=== PATIENT | female | born 1965 | race African-American/Black ===

== ENCOUNTER 2017-09-09 10:15 | Observation (INO) | payer MEDICAID, OTHER ==
[2017-09-09] VITALS (10 sets, daily range): BP systolic 100–128; BP diastolic 58–67; PULSE 51–91; RESP 15–18; TEMP 98.2–98.9; O2SAT 97–100
[~2017-09-09] VITALS: Ht 170.2 cm; Wt 98.0 kg
[2017-09-09] MEDS ORDERED: SODIUM CHLORIDE 0.9% FLUSH 10 ML FLUSH IVF PRN (11:30)
[2017-09-09] MEDS ORDERED: ASPIRIN 81 MG CHEW TAB PO ONE (11:30)
[2017-09-09] MEDS ORDERED: SODIUM CHLORID 0.9% 500 ML INJ 500 ML IV ONE (11:30)
[2017-09-09] MEDS ORDERED: MORPHINE SULFATE 2 MG/ML INJ IV PUSH ONE (11:30)
--- NOTE | 2017-09-09 11:47 | PD ---
HPI Chief Complaint: Chest Pain Time Seen by Provider: 11:27 Travel History International Travel<30 days: No Contact w/Intl Traveler<30days: No Traveled to known affect area: No History of Present Illness HPI 52-year-old Afro-N[place]alese female presents to the emergency department with history of 2 issues. Patient states he fell bowling 6 days ago injuring her right foot/ankle, knee, and hip. She has been babying this for the past week. Patient now is complaining of substernal chest pain pressure and shortness of breath which started yesterday and progressively worse over the past 24 hours. She denies previous history of heart disease, but is on simvastatin for cholesterol. Her pain is 8 out of 10. Patient does have a history of asthma,, but she feels this is "different". Patient states no fever or chills. She denies nausea or vomiting. She has no known drug allergies. [facility] Social History Alcohol Use: Yes Tobacco Use: No Substance Use: No Allergies-Medications (Allergen,Severity, Reaction): Coded Allergies: No Known Allergies (Unverified , 09/09/17) Reported Meds & Prescriptions Reported Meds & Active Scripts Active Reported Tramadol (Tramadol HCl) 50 Mg Tab 50 Mg PO Q4H PRN Simvastatin 20 Mg Tab 20 Mg PO BID Review of Systems Except as stated in HPI: all other systems reviewed are Neg General / Constitutional: No: Fever Eyes: No: Visual changes HENT: No: Headaches Cardiovascular: Positive: Chest Pain or Discomfort, Dyspnea on exertion, No: Palpitations, Irregular Rhythm, Tachycardia, Diaphoresis, Syncope, Varicosities , Edema, Varicosities, Phlebitis, Claudication Respiratory: Positive: Shortness of Breath (see history of present illness), No : Cough, Wheezing, Sneezing, Orthopnea, Hemoptysis, Stridor, Night Sweats, Pleuritic Pain Gastrointestinal: No: Nausea, Vomiting, Diarrhea, Abdominal Pain Genitourinary: No: Dysuria Musculoskeletal: Positive: Arthralgias, Limited ROM, Pain (see history of present illness.) Skin: No Rash Neurologic: No: Weakness Psychiatric: No: Depression Endocrine: No: Polydipsia Hematologic/Lymphatic: No: Easy Bruising Physical Exam Narrative GENERAL: Patient appears in [id number] distress. SKIN: Warm and dry. Normal color. Normal turgor. No diaphoresis. HEAD: Atraumatic. Normocephalic. EYES: Pupils equal and round. No scleral icterus. No injection or drainage. ENT: No nasal bleeding or discharge. Mucous membranes pink and moist. TMs are clear bilaterally. Pharynx is clear. Airway is patent. NECK: Trachea midline. Supple nontender. CARDIOVASCULAR: Regular rate and rhythm. No murmurs gallops or rubs appreciated. RESPIRATORY: No accessory muscle use. Clear to auscultation. Breath sounds equal bilaterally. Patient appears to have shortness of breath without accessory muscle use. No wheezes. Signs more suggestive of cardiac issue. GASTROINTESTINAL: Abdomen soft, non-tender, nondistended. Hepatic and splenic margins not palpable. MUSCULOSKELETAL: Extremities without clubbing, cyanosis, or edema. Patient has swelling over the right lateral malleolus and proximal dorsal foot. Range of motion is intact. No obvious deformities. Right Knee does not have significant effusion or laxity appreciated. Patient does complain of pain with movement of both the knee and the right hip. NEUROLOGICAL: Awake and alert. No obvious cranial nerve deficits. Motor grossly within normal limits. Five out of 5 muscle strength in the arms and legs. Normal speech. PSYCHIATRIC: Appropriate mood and affect; insight and judgment normal. Data Data Last Documented VS Vital Signs Date Time Temp Pulse Resp B/P (MAP) Pulse Ox O2 Delivery O2 Flow Rate FiO2 09/09/17 12:19 72 18 107/59 (75) 97 Nasal Cannula 2.00 09/09/17 10:17 98.3 Orders Orders Electrocardiogram (09/09/17 ) Electrocardiogram (09/09/17 11:28) B-Type Natriuretic Peptide (09/09/17 11:28) Ckmb (Isoenzyme) Profile (09/09/17 11:28) Complete Blood Count With Diff (09/09/17 11:28) Comprehensive Metabolic Panel (09/09/17 11:28) D-Dimer (09/09/17 11:28) Magnesium (Mg) (09/09/17 11:28) Prothrombin Time / Inr (Pt) (09/09/17 11:28) Act Partial Throm Time (Ptt) (09/09/17 11:28) Troponin I (09/09/17 11:28) Chest, Single Ap (09/09/17 11:28) Ecg Monitoring (09/09/17 11:28) Bilateral Bp Monitoring (09/09/17 11:28) Iv Access Insert/Monitor (09/09/17 11:28) Oximetry (09/09/17 11:28) Oxygen Administration (09/09/17 11:28) Aspirin Chew (Aspirin Chew) (09/09/17 11:30) Sodium Chloride 0.9% Flush (Ns Flush) (09/09/17 11:30) Nitroglycerin Sl (Nitrostat Sl) (09/09/17 11:30) Sodium Chlorid 0.9% 500 Ml Inj (Ns 500 M (09/09/17 11:30) Morphine Inj (Morphine Inj) (09/09/17 11:30) Ankle, Complete ([id number]) (09/09/17 11:28) Foot, Complete ([id number]) (09/09/17 11:28) Hip, Uni(Ap&Lat) W Ap Pelvis (09/09/17 11:28) CKMB (09/09/17 11:38) CKMB% (09/09/17 11:38) Labs Laboratory Tests Test 09/09/17 11:38 White Blood Count 7.7 TH/MM3 Red Blood Count 4.44 MIL/MM3 Hemoglobin 13.0 GM/DL Hematocrit 39.1 % Mean Corpuscular Volume 88.1 FL Mean Corpuscular Hemoglobin 29.2 PG Mean Corpuscular Hemoglobin Concent 33.2 % Red Cell Distribution Width 14.1 % Platelet Count 409 TH/MM3 Mean Platelet Volume 6.9 FL Neutrophils (%) (Auto) 42.7 % Lymphocytes (%) (Auto) 45.6 % Monocytes (%) (Auto) 9.2 % Eosinophils (%) (Auto) 2.0 % Basophils (%) (Auto) 0.5 % Neutrophils # (Auto) 3.3 TH/MM3 Lymphocytes # (Auto) 3.5 TH/MM3 Monocytes # (Auto) 0.7 TH/MM3 Eosinophils # (Auto) 0.2 TH/MM3 Basophils # (Auto) 0.0 TH/MM3 CBC Comment DIFF FINAL Differential Comment Prothrombin Time 10.0 SEC Prothromb Time International Ratio 1.0 RATIO Activated Partial Thromboplast Time 26.8 SEC D-Dimer Quantitative (PE/DVT) 0.21 MG/L FEU Blood Urea Nitrogen 14 MG/DL Creatinine 0.72 MG/DL Random Glucose 90 MG/DL Total Protein 8.0 GM/DL Albumin 3.6 GM/DL Calcium Level 8.9 MG/DL Magnesium Level 2.0 MG/DL Alkaline Phosphatase 86 U/L Aspartate Amino Transf (AST/SGOT) 20 U/L Alanine Aminotransferase (ALT/SGPT) 24 U/L Total Bilirubin 0.4 MG/DL Sodium Level 143 MEQ/L Potassium Level 4.5 MEQ/L Chloride Level 109 MEQ/L Carbon Dioxide Level 26.9 MEQ/L Anion Gap 7 MEQ/L Estimat Glomerular Filtration Rate 84 ML/MIN Total Creatine Kinase 111 U/L Creatine Kinase MB LESS THAN 0.5 NG/ML Troponin I LESS THAN 0.02 NG/ML B-Type Natriuretic Peptide 4 PG/ML MDM Medical Decision Making Medical Screen Exam Complete: Yes Emergency Medical Condition: Yes Differential Diagnosis Recent fall with injury to the right ankle/foot, right knee, right hip. Chest pain. Cardiac syndrome. Possible STEMI. Narrative Course Patient is in mild to moderate distress. EKG reviewed showing sinus rhythm with flipped T waves in the V1 and V2 V3 and V4 and V5 leads with moderate T wave abnormality consisting of QRS deflection of less than 1 suggestive of anterior ischemia. This is reviewed with Dr. Fernandes Chest pain protocol was initiated. Chest x-ray is ordered as well as labs including CBC, CMP, proBNP, d-dimer, cardiac panel, and lipase. IV access is obtained patient is given 4 mg Zofran IV as well as 4 mg morphine IV, as well as 0.4 mg sublingual nitroglycerin 3 for chest pain. Patient is given 324 mg aspirin by mouth. X-rays of the right hip, knee, ankle, and foot are ordered as well. X-rays of the hip, knee, ankle, and foot are all unremarkable. CBC is unremarkable, except for increased lymphs of 45.6%. Coagulation studies are normal, and d-dimer is negative with 0.21 result. 1220 hrs. Patient reassessed after the above medications and appears much more at ease, breathing easier, with improved chest pain. Chemistry shows no acute process, and first troponin is less than 0.02, CK-MB is less than 0.5. BNP is 4. Patient will be admitted to the chest pain center for further evaluation and treatment. Diagnosis Primary Impression: Chest pain at rest Additional Impression: Moderate right ankle sprain Qualified Codes: S93.401A - Sprain of unspecified ligament of right ankle, initial encounter Admitting Information Admitting Physician Requests: Observation Condition: Stable Fredi Mccollum Sep 09, 2017 11:46
[2017-09-09] MEDS ORDERED: TRAM50TA PO (11:52)
[2017-09-09] MEDS ORDERED: SIMV20TA PO (11:52)
[2017-09-09] MEDS: NITROGLYCERIN 0.4 MG SL 25 TABS/BTL SL SCH ×3 (12:01→12:18)
[2017-09-09 12:11] LABS: AUTOMATED NEUTROPHIL # 3.3 TH/MM3 (1.8-7.7); BASOPHIL % 0.5 % (0.0-2.0); EOSINOPHIL # 0.2 TH/MM3 (0-0.4); HEMATOCRIT 39.1 % (35.0-46.0); LYMPH % 45.6 % (9.0-44.0); LYMPHOCYTE # 3.5 TH/MM3 (1.0-4.8); MEAN CELL VOLUME 88.1 FL (80.0-100.0); MEAN CORPUSCULAR HEMOGLOBIN 29.2 PG (27.0-34.0); MEAN CORPUSCULAR HGB CONC 33.2 % (32.0-36.0); MEAN PLATELET VOLUME 6.9 FL (7.0-11.0); MONO % 9.2 % (0.0-8.0); MONOCYTE # 0.7 TH/MM3 (0-0.9); NEUT % 42.7 % (16.0-70.0); PLATELET COUNT 409 TH/MM3 (150-450); RED BLOOD COUNT 4.44 MIL/MM3 (4.00-5.30); RED CELL DISTRIBUTION WIDTH 14.1 % (11.6-17.2); WHITE BLOOD COUNT 7.7 TH/MM3 (4.0-11.0)
[2017-09-09 12:23] LABS: D-DIMER 0.21 MG/L FEU (0.00-0.50)
--- NOTE | 2017-09-09 12:25 | RADRPT ---
EXAM DATE/TIME: 09/09/2017 11:42 [facility] COMPARISON: No previous studies available for comparison. INDICATIONS : Chest pain, fell MEDICAL HISTORY : None. SURGICAL HISTORY : None. ENCOUNTER: Initial ACUITY: 2 days PAIN SCORE: 10/10 LOCATION: Bilateral chest FINDINGS: Single AP view of the chest. The lungs are clear. Cardiomediastinal silhouette within normal limits. No evidence of pleural effusion or pneumothorax. CONCLUSION: No acute cardiopulmonary disease identified. Rick Lopez MD on September 09, 2017 at 12:22 Board Certified Radiologist. This report was verified electronically.
--- NOTE | 2017-09-09 12:26 | RADRPT ---
EXAM DATE/TIME: 09/09/2017 11:45 [facility] COMPARISON: No previous studies available for comparison. INDICATIONS : Right hip pain, fell MEDICAL HISTORY : None. SURGICAL HISTORY : None. ENCOUNTER: Initial ACUITY: 2 days PAIN SCORE: 2/10 LOCATION: Right Hip FINDINGS: 3 views of right hip and pelvis. Bone alignment within normal limits. No evidence of fracture. No ev idence of joint narrowing. CONCLUSION: No evidence of fracture. Rick Lopez MD on September 09, 2017 at 12:22 Board Certified Radiologist. This report was verified electronically.
--- NOTE | 2017-09-09 12:27 | RADRPT ---
EXAM DATE/TIME: 09/09/2017 11:47 [facility] COMPARISON: No previous studies available for comparison. INDICATIONS : Right ankle pain, fell MEDICAL HISTORY : None. SURGICAL HISTORY : None. ENCOUNTER: Initial ACUITY: 2 days PAIN SCORE: 3/10 LOCATION: Right Ankle FINDINGS: 3 views right ankle. Prominent lateral soft tissue swelling. Bone alignment within normal limits. No evidence of fracture. Ankle mortise intact. CONCLUSION: No evidence of fracture. Rick Lopez MD on September 09, 2017 at 12:23 Board Certified Radiologist. This report was verified electronically.
--- NOTE | 2017-09-09 12:28 | RADRPT ---
EXAM DATE/TIME: 09/09/2017 11:48 [facility] COMPARISON: No previous studies available for comparison. INDICATIONS : Right foot pain, fell MEDICAL HISTORY : None. SURGICAL HISTORY : None. ENCOUNTER: Initial ACUITY: 2 days PAIN SCORE: 2/10 LOCATION: Right Foot FINDINGS: 3 views right foot. Bone alignment within normal limits. No evidence of fracture. Small plantar calc aneal spur. CONCLUSION: No evidence of fracture. Rick Lopez MD on September 09, 2017 at 12:24 Board Certified Radiologist. This report was verified electronically.
[2017-09-09 12:37] LABS: ALBUMIN 3.6 GM/DL (3.4-5.0); ALKALINE PHOSPHATASE 86 U/L (45-117); ALT (GPT) 24 U/L (10-53); AST (GOT) 20 U/L (15-37); BICARBONATE 26.9 MEQ/L (21.0-32.0); BLOOD UREA NITROGEN 14 MG/DL (7-18); CALCIUM 8.9 MG/DL (8.5-10.1); CHLORIDE 109 MEQ/L (98-107); CREATININE 0.72 MG/DL (0.50-1.00); GLOMERULAR FILTRATION RATE 84 ML/MIN (>89); GLUCOSE,RANDOM 90 MG/DL (74-106); SODIUM (NA) 143 MEQ/L (136-145); TOTAL BILIRUBIN ADULT 0.4 MG/DL (0.2-1.0); TROPONIN I LESS THAN 0.02 NG/ML (0.02-0.05)
[2017-09-09] MEDS ORDERED: ACETAMINOPHEN 500 MG CPLT PO PRN (13:45)
[2017-09-09] MEDS ORDERED: ONDANSETRON HCL 4 MG/2 ML VIAL IV PUSH PRN (13:45)
[2017-09-09] MEDS ORDERED: NITROGLYCERIN 0.4 MG SL 25 TABS/BTL SL PRN (13:45)
--- NOTE | 2017-09-09 13:48 | PD ---
Physical Exam Narrative GENERAL: Well-nourished, well-developed patient. SKIN: Warm and dry. HEAD: Normocephalic and atraumatic. EYES: No injection or drainage. ENT: No nasal drainage noted. NECK: Supple, trachea midline. CARDIOVASCULAR: Regular rate and rhythm RESPIRATORY: no increased effort. No accessory muscle use. GASTROINTESTINAL: Abdomen nondistended. NEUROLOGICAL: Awake and alert. Motor and sensory grossly within normal limits. Normal speech. Data Data Last Documented VS Vital Signs Date Time Temp Pulse Resp B/P (MAP) Pulse Ox O2 Delivery O2 Flow Rate FiO2 09/09/17 12:41 68 18 118/61 (80) 99 Nasal Cannula 2.00 09/09/17 10:17 98.3 Orders Orders Electrocardiogram (09/09/17 ) Electrocardiogram (09/09/17 11:28) B-Type Natriuretic Peptide (09/09/17 11:28) Ckmb (Isoenzyme) Profile (09/09/17 11:28) Complete Blood Count With Diff (09/09/17 11:28) Comprehensive Metabolic Panel (09/09/17 11:28) D-Dimer (09/09/17 11:28) Magnesium (Mg) (09/09/17 11:28) Prothrombin Time / Inr (Pt) (09/09/17 11:28) Act Partial Throm Time (Ptt) (09/09/17 11:28) Troponin I (09/09/17 11:28) Chest, Single Ap (09/09/17 11:28) Ecg Monitoring (09/09/17 11:28) Bilateral Bp Monitoring (09/09/17 11:28) Iv Access Insert/Monitor (09/09/17 11:28) Oximetry (09/09/17 11:28) Oxygen Administration (09/09/17 11:28) Aspirin Chew (Aspirin Chew) (09/09/17 11:30) Sodium Chloride 0.9% Flush (Ns Flush) (09/09/17 11:30) Nitroglycerin Sl (Nitrostat Sl) (09/09/17 11:30) Sodium Chlorid 0.9% 500 Ml Inj (Ns 500 M (09/09/17 11:30) Morphine Inj (Morphine Inj) (09/09/17 11:30) Ankle, Complete ([id number]) (09/09/17 11:28) Foot, Complete ([id number]) (09/09/17 11:28) Hip, Uni(Ap&Lat) W Ap Pelvis (09/09/17 11:28) CKMB (09/09/17 11:38) CKMB% (09/09/17 11:38) Admit Order (Ed Use Only) (09/09/17 13:00) Labs Laboratory Tests Test 09/09/17 11:38 White Blood Count 7.7 TH/MM3 Red Blood Count 4.44 MIL/MM3 Hemoglobin 13.0 GM/DL Hematocrit 39.1 % Mean Corpuscular Volume 88.1 FL Mean Corpuscular Hemoglobin 29.2 PG Mean Corpuscular Hemoglobin Concent 33.2 % Red Cell Distribution Width 14.1 % Platelet Count 409 TH/MM3 Mean Platelet Volume 6.9 FL Neutrophils (%) (Auto) 42.7 % Lymphocytes (%) (Auto) 45.6 % Monocytes (%) (Auto) 9.2 % Eosinophils (%) (Auto) 2.0 % Basophils (%) (Auto) 0.5 % Neutrophils # (Auto) 3.3 TH/MM3 Lymphocytes # (Auto) 3.5 TH/MM3 Monocytes # (Auto) 0.7 TH/MM3 Eosinophils # (Auto) 0.2 TH/MM3 Basophils # (Auto) 0.0 TH/MM3 CBC Comment DIFF FINAL Differential Comment Prothrombin Time 10.0 SEC Prothromb Time International Ratio 1.0 RATIO Activated Partial Thromboplast Time 26.8 SEC D-Dimer Quantitative (PE/DVT) 0.21 MG/L FEU Blood Urea Nitrogen 14 MG/DL Creatinine 0.72 MG/DL Random Glucose 90 MG/DL Total Protein 8.0 GM/DL Albumin 3.6 GM/DL Calcium Level 8.9 MG/DL Magnesium Level 2.0 MG/DL Alkaline Phosphatase 86 U/L Aspartate Amino Transf (AST/SGOT) 20 U/L Alanine Aminotransferase (ALT/SGPT) 24 U/L Total Bilirubin 0.4 MG/DL Sodium Level 143 MEQ/L Potassium Level 4.5 MEQ/L Chloride Level 109 MEQ/L Carbon Dioxide Level 26.9 MEQ/L Anion Gap 7 MEQ/L Estimat Glomerular Filtration Rate 84 ML/MIN Total Creatine Kinase 111 U/L Creatine Kinase MB LESS THAN 0.5 NG/ML Troponin I LESS THAN 0.02 NG/ML B-Type Natriuretic Peptide 4 PG/ML MDM Supervised Visit with RANULFO: Yes Interpretation(s) CBC & BMP Diagram 09/09/17 11:38 Total Protein 8.0, Albumin 3.6, Calcium Level 8.9, Magnesium Level 2.0, Alkaline Phosphatase 86, Aspartate Amino Transf (AST/SGOT) 20, Alanine Aminotransferase (ALT/SGPT) 24, Total Bilirubin 0.4 Last 24 hours Impressions Hip and Pelvis X-Ray 09/09/171127 Signed Impressions: Service Date/Time: Saturday, September 09, 2017 11:45 - CONCLUSION: No evidence of fracture. Rick Lopez MD Foot X-Ray 09/09/171127 Signed Impressions: Service Date/Time: Saturday, September 09, 2017 11:48 - CONCLUSION: No evidence of fracture. Rick Lopez MD Chest X-Ray 09/09/171127 Signed Impressions: Service Date/Time: Saturday, September 09, 2017 11:42 - CONCLUSION: No acute cardiopulmonary disease identified. Rick Lopez MD Ankle X-Ray 09/09/171127 Signed Impressions: Service Date/Time: Saturday, September 09, 2017 11:47 - CONCLUSION: No evidence of fracture. Rick Lopez MD Narrative Course I, Dr. dia, have reviewed the advance practice practitioner's documentation and am in agreement, met with the patient face to face, made the diagnosis, and the medical decision making was done by me. *My assessment and Findings: 52-year-old female presents with chest pain and having pain to her leg after a fall. Patient to her chest is not over where she hit it. She hasn't had a stress test for 5 years. She is feeling better after nitroglycerin and has T-wave inversions anteriorly. Patient agrees to admission Diagnosis Primary Impression: Chest pain at rest Additional Impression: Moderate right ankle sprain Qualified Codes: S93.401A - Sprain of unspecified ligament of right ankle, initial encounter Admitting Information Admitting Physician Requests: Observation Condition: Stable Ju Dia MD Sep 09, 2017 13:48
--- NOTE | 2017-09-09 14:31 | HHI.HP ---
HPI Primary Care Physician Edward Chinchilla DO Chief Complaint Chest pain History of Present Illness 52 year of female with history of asthma and hyperlipidemia presents to emergency room for further evaluation of chest pain. Reports falling onto right side last Sunday while bowling. Since falling right arm/shoulder/hip/leg/ foot hurting however reports "babying area and relaxing." Onset of chest pain Sunday. Location substernal. Characterized as "a ton of bricks." No radiation of pain. No associated symptoms with nausea, vomiting, dyspnea, or diaphoresis. Pain constant. Precipitating factors falling. No known relieving factors. Previously prescribed Tramadol PRN, took x1 dose without relief. Came to ER for further evaluation due to prolonged chest discomfort. No particular movement or position makes pain better or worse, however grimacing noted when positioning herself on stretcher. Area is tender with palpation. Review of Systems General: Recent fall as stated above, otherwise has been in her general state of health. No fatigue,weakness, fever, chills, recent illness, or change in appetite. HEENT: No BRINK, no vision changes, no nasal congestion or drainage, no dysphasia CV: Continuous chest pain as stated above. RESP: No SOB, cough, wheeze,, or recent URI. History of intermediate asthma. GI: No nausea, vomiting, bowel changes, diarrhea, constipation, pain, distention , melena, or blood in the stool. \\ : No dysuria, urgency, frequency EXT: No lower leg edema, no paraesthesias MS: Recent fall while bowling last Sunday. No LOC, did not hit head. Slipped, landed onto right side. Right side of body discomfort since falling developing chest wall pain Sunday. NEURO: No difficulty with balance, LOC, motor/sensory deficits PSYCH: No anxiety, depression SKIN: No rashes, no concerning lesions Past Family Social History Allergies: Coded Allergies: No Known Allergies (Unverified , 09/09/17) Past Medical History Hyperlipidemia, asthma Past Surgical History Reported Medications Reported Meds & Active Scripts Active Reported Tramadol (Tramadol HCl) 50 Mg Tab 50 Mg PO Q4H PRN Simvastatin 20 Mg Tab 20 Mg PO BID Active Ordered Medications Current Medications Medications (Trade) Dose Ordered Sig/Staci Route Start Time Stop Time Status Last Admin (NS Flush) 2 ml UNSCH PRN IVF 09/09/17 11:30 (NS Flush) 2 ml BID IV FLUSH 09/09/17 21:00 (Tylenol) 500 mg Q4H PRN PO 09/09/17 13:45 (Zofran Inj) 4 mg Q6H PRN IV PUSH 09/09/17 13:45 (Nitrostat Sl) 0.4 mg Q5M PRN SL 09/09/17 13:45 (Aspirin) 325 mg DAILY PO 09/10/17 09:00 Family History Brother coronary artery stent in mid 40s. Social History Known hyperlipidemia. No known coronary artery disease, diabetes, or hypertension. Former smoker quitting 4 years ago. Prior to quitting reports smoking 2-3 cigarettes daily. Active. Grown children and active with multiple young grandchildren. Works for [employer]. Past cardiac testing 2012 Exercise stress testing [place], [place] reported no intervention. Given Nitro SL and told to take a baby aspirin daily. Physical Exam Vital Signs Vital Signs Date Time Temp Pulse Resp B/P (MAP) Pulse Ox O2 Delivery O2 Flow Rate FiO2 09/09/17 12:41 68 18 118/61 (80) 99 Nasal Cannula 2.00 09/09/17 12:19 72 18 107/59 (75) 97 Nasal Cannula 2.00 09/09/17 12:14 69 18 109/67 (81) 98 Nasal Cannula 2.00 09/09/17 12:13 68 18 110/61 (77) 97 Nasal Cannula 2.00 09/09/17 12:13 68 18 98 Nasal Cannula 2.00 09/09/17 11:32 97 Nasal Cannula 2.00 09/09/17 11:32 18 97 Nasal Cannula 2.00 09/09/17 10:17 98.3 91 15 128/66 (86) 98 Physical Exam GENERAL: Alert WN, WD, NAD, pleasant, obese, female HEAD: NC, AT EYES: Sclera clear, conjunctiva without injection, pupils equal and round ENT: Mucous membranes pink and moist CV: RRR, without murmur, rub, gallop, no JVD, S1-S2 no S3-S4. Substernal chest pain easily reproduced with palpation. RESP: Clear lungs throughout bilateral, no crackles, wheeze, rhonchi, symmetrical chest rise, nonlabored, able to speak in full sentences ABD: Soft, NT, ND, no masses, positive bowel tones, obese, round EXT: Pulses +24, trace bilateral lower leg dependent edema MS: Normal tone 4 extremities, nontender, no obvious deformities, full range of motion NEURO: CN II through CN XII grossly intact, motor strength 5/5 PSYCH: A+O 3, pleasant affect, appropriate speech, mood, insight and judgment SKIN: Normal turgor, normal texture, no lesions, no rashes, even hair distribution Laboratory Laboratory Tests Test 09/09/17 11:38 White Blood Count 7.7 Red Blood Count 4.44 Hemoglobin 13.0 Hematocrit 39.1 Mean Corpuscular Volume 88.1 Mean Corpuscular Hemoglobin 29.2 Mean Corpuscular Hemoglobin Concent 33.2 Red Cell Distribution Width 14.1 Platelet Count 409 Mean Platelet Volume 6.9 Neutrophils (%) (Auto) 42.7 Lymphocytes (%) (Auto) 45.6 Monocytes (%) (Auto) 9.2 Eosinophils (%) (Auto) 2.0 Basophils (%) (Auto) 0.5 Neutrophils # (Auto) 3.3 Lymphocytes # (Auto) 3.5 Monocytes # (Auto) 0.7 Eosinophils # (Auto) 0.2 Basophils # (Auto) 0.0 CBC Comment DIFF FINAL Differential Comment Prothrombin Time 10.0 Prothromb Time International Ratio 1.0 Activated Partial Thromboplast Time 26.8 D-Dimer Quantitative (PE/DVT) 0.21 Blood Urea Nitrogen 14 Creatinine 0.72 Random Glucose 90 Total Protein 8.0 Albumin 3.6 Calcium Level 8.9 Magnesium Level 2.0 Alkaline Phosphatase 86 Aspartate Amino Transf (AST/SGOT) 20 Alanine Aminotransferase (ALT/SGPT) 24 Total Bilirubin 0.4 Sodium Level 143 Potassium Level 4.5 Chloride Level 109 Carbon Dioxide Level 26.9 Anion Gap 7 Estimat Glomerular Filtration Rate 84 Total Creatine Kinase 111 Creatine Kinase MB LESS THAN 0.5 Troponin I LESS THAN 0.02 B-Type Natriuretic Peptide 4 Result Diagram: 09/09/17 1138 09/09/17 1138 Imaging Last 48 hours Impressions Hip and Pelvis X-Ray 09/09/17 1128 Signed Impressions: Service Date/Time: Saturday, September 09, 2017 11:45 - CONCLUSION: No evidence of fracture. Rick Lopez MD Foot X-Ray 09/09/17 1128 Signed Impressions: Service Date/Time: Saturday, September 09, 2017 11:48 - CONCLUSION: No evidence of fracture. Rick Lopez MD Chest X-Ray 09/09/17 1128 Signed Impressions: Service Date/Time: Saturday, September 09, 2017 11:42 - CONCLUSION: No acute cardiopulmonary disease identified. Rick Lopez MD Ankle X-Ray 09/09/17 1128 Signed Impressions: Service Date/Time: Saturday, September 09, 2017 11:47 - CONCLUSION: No evidence of fracture. Rick Lopez MD Course EKG NSR, normal axis, no st segment changes. T wave inversion leads V2-V5, nonspecific T wave changes V6 (no previous EKG to compare) Caprini VTE Risk Assessment Caprini VTE Risk Assessment: No/Low Risk (score <= 1) Caprini Risk Assessment Model Point Value = 1 Point Value = 2 Point Value = 3 Point Value = 5 Age 41-60 Minor surgery BMI > 25 kg/m2 Swollen legs Varicose veins or History of unexplained or recurrent spontaneous Oral contraceptives or hormone replacement Sepsis (< 1 month) Serious lung disease, including pneumonia (< 1 month) Abnormal pulmonary function Acute myocardial infarction Congestive heart failure (< 1 month) History of inflammatory bowel disease Medical patient at bed rest Age 61-74 Arthroscopic surgery Major open surgery (> 45 min) Laparoscopic surgery (> 45 min) Malignancy Confined to bed (> 72 hours) Immobilizing plaster cast Central venous access Age >= 75 History of VTE Family history of VTE Factor V Leiden Prothrombin [id number] Lupus anticoagulant Anticardiolipin antibodies Elevated serum homocysteine Heparin-induced thrombocytopenia Other congenital or acquired thrombophilia Stroke (< 1 month) Elective arthroplasty Hip, pelvis, or leg fracture Acute spinal cord injury (< 1 month) Prophylaxis Regimen Total Risk Factor Score Risk Level Prophylaxis Regimen 0-1 Low Early ambulation 2 Moderate Order ONE of the following: *Sequential Compression Device (SCD) *Heparin 5000 units SQ BID 3-4 Higher Order ONE of the following medications: *Heparin 5000 units SQ TID *Enoxaparin/Lovenox 40 mg SQ daily (WT < 150 kg, CrCl > 30 mL/min) *Enoxaparin/Lovenox 30 mg SQ daily (WT < 150 kg, CrCl > 10-29 mL/min) *Enoxaparin/Lovenox 30 mg SQ BID (WT < 150 kg, CrCl > 30 mL/min) AND/OR *Sequential Compression Device (SCD) 5 or more Highest Order ONE of the following medications: *Heparin 5000 units SQ TID (Preferred with Epidurals) *Enoxaparin/Lovenox 40 mg SQ daily (WT < 150 kg, CrCl > 30 mL/min) *Enoxaparin/Lovenox 30 mg SQ daily (WT < 150 kg, CrCl > 10-29 mL/min) *Enoxaparin/Lovenox 30 mg SQ BID (WT < 150 kg, CrCl > 30 mL/min) AND *Sequential Compression Device (SCD) Assessment and Plan Assessment and Plan #1 Chest wall pain-admitted to chest pain center. Begin cardiac protocol including 3 sets of EKGs and cardiac enzymes. Will be seen and evaluated by Dr. Mehdi Gilbert. Discussed chest discomfort musculoskeletal in nature, however due to risk factors possible stress testing may be indicated. This will be determined after evaluation by [facility] shoe puller. Patient agreeable to plan of care. Chani Martinez Sep 09, 2017 14:31
[2017-09-09] MEDS ORDERED: KETOROLAC TROMETHAMINE 30 MG/ML (IVP) VIAL IV PUSH ONE ×2 (14:45→22:00)
[2017-09-09 15:09] LABS: TROPONIN I LESS THAN 0.02 NG/ML (0.02-0.05)
--- NOTE | 2017-09-09 16:42 | PD.CARD.PN ---
Subjective Subjective Remarks Pleasant 52 YO black lady who fell while bowling last Sunday night and has had significant pain since. This has involved her right side and been quite uncomfortable but day before yesterday her chest began to hurt more. This is a constant pressure like pain exasperated to sharp pain when taking a deep breath or coughing. The patient was seen and examined and reviewed with ORNAMENTAL BRICK INSTALLER. Agree with her evaluation and recommendations. Objective Medications Current Medications Medications (Trade) Dose Ordered Sig/Staci Route Start Time Stop Time Status Last Admin (NS Flush) 2 ml UNSCH PRN IVF 09/09/17 11:30 (NS Flush) 2 ml BID IV FLUSH 09/09/17 21:00 (Tylenol) 500 mg Q4H PRN PO 09/09/17 13:45 (Zofran Inj) 4 mg Q6H PRN IV PUSH 09/09/17 13:45 (Nitrostat Sl) 0.4 mg Q5M PRN SL 09/09/17 13:45 (Aspirin) 325 mg DAILY PO 09/10/17 09:00 Vital Signs / I&O Vital Signs Date Time Temp Pulse Resp B/P (MAP) Pulse Ox O2 Delivery O2 Flow Rate FiO2 09/09/17 15:30 09/09/17 12:41 68 18 118/61 (80) 99 Nasal Cannula 2.00 09/09/17 12:19 72 18 107/59 (75) 97 Nasal Cannula 2.00 09/09/17 12:14 69 18 109/67 (81) 98 Nasal Cannula 2.00 09/09/17 12:13 68 18 110/61 (77) 97 Nasal Cannula 2.00 09/09/17 12:13 68 18 98 Nasal Cannula 2.00 09/09/17 11:32 97 Nasal Cannula 2.00 09/09/17 11:32 18 97 Nasal Cannula 2.00 09/09/17 10:17 98.3 91 15 128/66 (86) 98 Physical Exam Exquisite pain on pressure along the lower costochondral junctions replication the pain she is complaining of. Chest to anterior exam is clear without RWR CV RSR with no GRM EKG inverted T waves across anterior leads Laboratory Laboratory Tests Test 09/09/17 11:38 09/09/17 14:40 White Blood Count 7.7 TH/MM3 Red Blood Count 4.44 MIL/MM3 Hemoglobin 13.0 GM/DL Hematocrit 39.1 % Mean Corpuscular Volume 88.1 FL Mean Corpuscular Hemoglobin 29.2 PG Mean Corpuscular Hemoglobin Concent 33.2 % Red Cell Distribution Width 14.1 % Platelet Count 409 TH/MM3 Mean Platelet Volume 6.9 FL Neutrophils (%) (Auto) 42.7 % Lymphocytes (%) (Auto) 45.6 % Monocytes (%) (Auto) 9.2 % Eosinophils (%) (Auto) 2.0 % Basophils (%) (Auto) 0.5 % Neutrophils # (Auto) 3.3 TH/MM3 Lymphocytes # (Auto) 3.5 TH/MM3 Monocytes # (Auto) 0.7 TH/MM3 Eosinophils # (Auto) 0.2 TH/MM3 Basophils # (Auto) 0.0 TH/MM3 CBC Comment DIFF FINAL Differential Comment Prothrombin Time 10.0 SEC Prothromb Time International Ratio 1.0 RATIO Activated Partial Thromboplast Time 26.8 SEC D-Dimer Quantitative (PE/DVT) 0.21 MG/L FEU Blood Urea Nitrogen 14 MG/DL Creatinine 0.72 MG/DL Random Glucose 90 MG/DL Total Protein 8.0 GM/DL Albumin 3.6 GM/DL Calcium Level 8.9 MG/DL Magnesium Level 2.0 MG/DL Alkaline Phosphatase 86 U/L Aspartate Amino Transf (AST/SGOT) 20 U/L Alanine Aminotransferase (ALT/SGPT) 24 U/L Total Bilirubin 0.4 MG/DL Sodium Level 143 MEQ/L Potassium Level 4.5 MEQ/L Chloride Level 109 MEQ/L Carbon Dioxide Level 26.9 MEQ/L Anion Gap 7 MEQ/L Estimat Glomerular Filtration Rate 84 ML/MIN Total Creatine Kinase 111 U/L 69 U/L Creatine Kinase MB LESS THAN 0.5 NG/ML Troponin I LESS THAN 0.02 NG/ML LESS THAN 0.02 NG/ML B-Type Natriuretic Peptide 4 PG/ML Imaging Last 24 hours Impressions Hip and Pelvis X-Ray 09/09/17 1128 Signed Impressions: Service Date/Time: Saturday, September 09, 2017 11:45 - CONCLUSION: No evidence of fracture. Rick Lopez MD Foot X-Ray 09/09/17 1128 Signed Impressions: Service Date/Time: Saturday, September 09, 2017 11:48 - CONCLUSION: No evidence of fracture. Rick Lopez MD Chest X-Ray 09/09/17 1128 Signed Impressions: Service Date/Time: Saturday, September 09, 2017 11:42 - CONCLUSION: No acute cardiopulmonary disease identified. Rick Lopez MD Ankle X-Ray 09/09/17 1128 Signed Impressions: Service Date/Time: Saturday, September 09, 2017 11:47 - CONCLUSION: No evidence of fracture. Rick Lopez MD Assessment and Plan Assessment and Plan Her CP is clearly muscular skeletal however she does have some risk and the EKG is somewhat abnormal with no prior to compare. Will treat her MS pain RO ACS and MATILDA (she is not a candidate to walk with the ankle hip and chest wall pain) Code Status Full Discussed Condition With ORNAMENTAL BRICK INSTALLER and patient Mehdi Gilbert MD Sep 09, 2017 16:42
[2017-09-09 19:29] LABS: TROPONIN I LESS THAN 0.02 NG/ML (0.02-0.05)
[2017-09-09] MEDS: SODIUM CHLORIDE 0.9% FLUSH 10 ML FLUSH IV FLUSH SCH (21:02)
[2017-09-10 00:11] VITALS: PULSE 54
[2017-09-10 03:40] VITALS: BP 92/50; PULSE 54; RESP 18; TEMP 98.5; O2SAT 100
[2017-09-10 07:25] VITALS: PULSE 60
[2017-09-10] MEDS: SODIUM CHLORIDE 0.9% FLUSH 10 ML FLUSH IV FLUSH SCH (09:00)
[2017-09-10] MEDS ORDERED: ASPIRIN 325 MG TAB PO SCH (09:00)
[2017-09-10] MEDS ORDERED: REGADENOSON INJ 0.4 MG/5 ML SYR ONE (09:25)
--- NOTE | 2017-09-10 10:54 | RADRPT ---
EXAM DATE/TIME: 09/10/2017 09:15 [facility] COMPARISON: No previous studies available for comparison. INDICATIONS : Substernal chest pain. Angina. DOSE: 26.9 mCi Tc99m Myoview at stress. 8.5 mCi Tc99m Myoview at rest. 0.4 mg Lexiscan STRESS SYMPTOMS: Dyspnea. EJECTION FRACTION: 67% MEDICAL HISTORY : Hypertension. Asthma. SURGICAL HISTORY : section. ENCOUNTER: Initial ACUITY: 1 day PAIN SCALE: 5/10 LOCATION: Substernal chest TECHNIQUE: The patient underwent pharmacologic stress with infusion of prescribed dose. Continuous ECG tracing was monitored during stress. Gated SPECT imaging was performed after stress and conventional SPECT i maging was performed at rest. The examination was performed on a SPECT/CT scanner, both attenuation and non-corrected datasets were reviewed. FINDINGS: DISTRIBUTION: The maximum perfused segment at stress is in the anterior lateral wall. PERFUSION STUDY: The pattern of perfusion at stress is within normal limits. GATED STUDY: There is intact wall motion and thickening without hypokinetic or dyskinetic segments. CONCLUSION: 1. No fixed or reversible defects to suggest ischemia or infarction. 2. Normal wall motion and calculated ejection fraction. RISK CATEGORY: Low (<1% Annual Mortality Rate) Chris Phillip MD on September 10, 2017 at 10:48 Board Certified Radiologist. This report was verified electronically.
--- NOTE | 2017-09-10 11:03 | HHI.DCPOC ---
Discharge Care Plan Diagnosis: (1) Costochondral chest pain Goals to Promote Your Health * To prevent worsening of your condition and complications * To maintain your health at the optimal level Directions to Meet Your Goals Take your medications as prescribed Follow your dietary instruction Follow activity as directed Keep your appointments as scheduled Take your immunizations and boosters as scheduled If your symptoms worsen call your PCP, if no PCP go to Urgent Care Center or Emergency Room Smoking is Dangerous to Your Health. Avoid second hand smoke Call the 24-hour hour crisis hotline for domestic abuse at Chani Martinez Sep 10, 2017 11:03
--- NOTE | 2017-09-10 11:22 | HHI.DS ---
Discharge Summary Admission Date Sep 09, 2017 at 13:02 Discharge Date: Sep 10, 2017 Admitting Diagnosis Chest Pain/Right Ankle Sprain (1) Costochondral chest pain Diagnosis: Principal ICD Codes: R07.1 - Chest pain on breathing Status: Acute Procedures Last 48 hours Impressions Myocardial Perfusion Scan Nuc Med 09/10/17 0000 Signed Impressions: Service Date/Time: Sunday, September 10, 2017 09:15 - CONCLUSION: 1. No fixed or reversible defects to suggest ischemia or infarction. 2. Normal wall motion and calculated ejection fraction. RISK CATEGORY: Low (<1%% Annual Mortality Rate) Chris Phillip MD Hip and Pelvis X-Ray 09/09/171127 Signed Impressions: Service Date/Time: Saturday, September 09, 2017 11:45 - CONCLUSION: No evidence of fracture. Rick Lopez MD Foot X-Ray 09/09/171127 Signed Impressions: Service Date/Time: Saturday, September 09, 2017 11:48 - CONCLUSION: No evidence of fracture. Rick Lopez MD Chest X-Ray 09/09/171127 Signed Impressions: Service Date/Time: Saturday, September 09, 2017 11:42 - CONCLUSION: No acute cardiopulmonary disease identified. Rick Lopez MD Ankle X-Ray 09/09/178 Signed Impressions: Service Date/Time: Saturday, September 09, 2017 11:47 - CONCLUSION: No evidence of fracture. Rick Lopez MD Brief History 52-year-old female with history of hyperlipidemia presents to emergency room for further evaluation chest pain. Status post fall 1 week ago while bowling. Fell onto Right side. Developing substernal, reproducible chest pain 2 days after falling. Duration constant, made worse with movement. Admitted to chest pain center. Ruled out with cardiac protocol and evaluated by motor tester. Proceed with chemical stress testing due to risk factors and abnormal EKG. Chemical stress testing did not suggest ischemia. Discharge home. CBC/BMP: 09/09/17 1138 09/09/17 1138 Significant Findings Laboratory Tests Test 09/09/17 11:38 09/09/17 14:40 09/09/17 18:23 Mean Platelet Volume 6.9 FL (7.0-11.0) Lymphocytes (%) (Auto) 45.6 % (9.0-44.0) Monocytes (%) (Auto) 9.2 % (0.0-8.0) Chloride Level 109 MEQ/L (98-107) Estimat Glomerular Filtration Rate 84 ML/MIN (>89) Creatine Kinase MB LESS THAN 0.5 NG/ML Troponin I LESS THAN 0.02 NG/ML LESS THAN 0.02 NG/ML LESS THAN 0.02 NG/ML PE at Discharge GENERAL: Alert WN, WD, NAD, pleasant female HEAD: NC, AT CV: RRR, without murmur, rub, gallop, no JVD, S1-S2 no S3-S4. Chest wall pain reproduced with palpation. RESP: Clear lungs throughout bilateral, no crackles, wheeze, rhonchi, symmetrical chest rise, nonlabored, able to speak in full sentences EXT: Pulses +24, no dependent edema MS: Normal tone 4 extremities, no obvious deformities, full range of motion NEURO: CN II through CN XII grossly intact, motor strength 5/5 PSYCH: A+O 3, pleasant affect, appropriate speech, mood, insight and judgment SKIN: Normal turgor, normal texture Pt Condition on Discharge: Good Discharge Disposition: Discharge Home Discharge Instructions DIET: Follow Instructions for: Heart Healthy Diet Activities you can perform: Regular-No Restrictions Additional Information Encouraged use of heating pad to affected chest wall. Reports previously prescribed ibuprofen 800 mg tablets, by her PCP for injury to back, reports taking for short time therefore has tablets available for use. Encouraged taking previously prescribed ibuprofen, 1 tablet, x3 times a day, with food for 3 days. Instructed to follow up with PCP if symptoms do not improve. Verbalized understanding. Chani Martinez Sep 10, 2017 11:22
--- NOTE | 2017-09-10 12:54 | EKG ---
Date Performed: 09/09/2017 Time Performed: 18:38:22 PTAGE: 52 years EKG: Sinus rhythm LOW QRS VOLTAGE IN PRECORDIAL LEADS POSSIBLE ANTERIOR MYOCARDIAL INFARCTION MODERATE T-WAVE ABNORMAL ITY, CONSIDER LATERAL ISCHEMIA ABNORMAL ECG PREVIOUS TRACING : 09/09/2017 14.37 Since previous tracing, no significant change noted DOCTOR: Romel Mata Interpretating Date/Time 09/10/2017 12:52:43
--- NOTE | 2017-09-10 12:55 | EKG ---
Date Performed: 09/09/2017 Time Performed: 14:37:41 PTAGE: 52 years EKG: Sinus rhythm LOW QRS VOLTAGE IN PRECORDIAL LEADS MODERATE T-WAVE ABNORMALITY, CONSIDER ANTERIOR ISCHEMIA ABNORMAL ECG INTERPRETATION BASED ON A DEFAULT AGE OF 40 YEARS NO PREVIOUS TRACING DOCTOR: Romel Mata Interpretating Date/Time 09/10/2017 12:53:02
--- NOTE | 2017-09-10 12:55 | EKG ---
Date Performed: 09/09/2017 Time Performed: 10:35:11 PTAGE: 52 years EKG: Sinus rhythm LOW QRS VOLTAGE IN PRECORDIAL LEADS MODERATE T-WAVE ABNORMALITY, CONSIDER ANTERIOR ISCHEMIA ABNORMAL ECG PREVIOUS TRACING : 09/09/2017 10.33 Since previous tracing, no significant change noted DOCTOR: Romel Mata Interpretating Date/Time 09/10/2017 12:53:14
--- NOTE | 2017-09-10 13:00 | TR ---
Date Performed: 09/10/2017 Time Performed: 09:33:46 DOCTOR: Romel Mata DRUG LIST: CLINICAL HISTORY: REASON FOR TEST: CHEST PAIN REASON FOR ENDING: OBSERVATION: CONCLUSION: Lexiscan stress test was performed under standard four minute protocol. Radionuclid e was injected one minute prior to ending the test. T wave changes were unchanged throughout teat. Nu clear imaging and interpretation are pending. COMMENTS:
== END 2017-09-10 18:19 | disposition home or self-care (01) ==
LOC: NEPC 10:15 → NEDA 13:02 → NEPGCP 15:30
PROVIDERS: ADMIT Internal Medicine Interventional Cardiology; ATTEND Internal Medicine Interventional Cardiology
DX: R07.1 Chest pain on breathing (principal); S93.401A Sprain of unspecified ligament of right ankle, initial encounter; S79.911A Unspecified injury of right hip, initial encounter; J45.909 Unspecified asthma, uncomplicated; E78.5 Hyperlipidemia, unspecified; R06.02 Shortness of breath; R94.31 Abnormal electrocardiogram [ECG] [EKG]; Y93.54 Activity, bowling; R07.2 Precordial pain; Z87.891 Personal history of nicotine dependence; W19.XXXA Unspecified fall, initial encounter; Y92.39 Other specified sports and athletic area as the place of occurrence of the external cause; S89.91XA Unspecified injury of right lower leg, initial encounter
CPT/HCPCS: 71045; 73502; 73610; 73630; 78452; 80053; 82550; 82552; 83735; 83880; 84484; 85025; 85379; 85610; 85730; 93005; 93017; 96374; 96375; 96376; 99285; A9502; G0378; J1885; J2270; J2785; J7040

== ENCOUNTER 2017-11-02 18:57 | Emergency (ER) | payer MEDICAID ==
[~2017-11-02] VITALS: Ht 170.2 cm; Wt 100.0 kg
[~2017-11-02 18:57] MED LIST: SIMV20TA PO; TRAM50TA PO
[2017-11-02 19:27] VITALS: BP 139/82; PULSE 87; RESP 18; TEMP 98.1; O2SAT 99
--- NOTE | 2017-11-02 20:38 | RADRPT ---
EXAM DATE/TIME: 11/02/2017 19:49 [facility] COMPARISON: No previous studies available for comparison. INDICATIONS : Pain from fall. MEDICAL HISTORY : None. SURGICAL HISTORY : None. ENCOUNTER: Initial ACUITY: 1 day PAIN SCORE: 9/10 LOCATION: Left distal forearm. FINDINGS: Two view examination of the left forearm demonstrates no evidence of fracture or dislocation. Bony m ineralization is normal. The soft tissue structures are intact. CONCLUSION: 1. No acute findings. Taj Curry MD on November 02, 2017 at 20:35 Board Certified Radiologist. This report was verified electronically.
[2017-11-02] MEDS ORDERED: ORPHENADRINE INJ 60 MG/2 ML AMP IM ONE (22:00)
[2017-11-02] MEDS ORDERED: KETOROLAC TROMETHAMINE 60 MG/2 ML (IM) VIAL IM ONE (22:00)
[2017-11-02] MEDS ORDERED: BACL20TA PO (22:08)
[2017-11-02] MEDS ORDERED: TRAM50 PO (22:08)
--- NOTE | 2017-11-02 22:08 | PD ---
HPI Chief Complaint: Injury Time Seen by Provider: 21:39 Travel History International Travel<30 days: No Contact w/Intl Traveler<30days: No Traveled to known affect area: No History of Present Illness HPI Patient states that while she was trying her grandsons however board she stepped on it started to take off quickly and ended up falling backwards trying to catch herself she extended her left arm out and is now complaining of left arm pain particularly around the area of the wrist. Patient is also complaining of back pain thoracic lumbar and sacral. Denies any cervical pain at this point. Denies any headache. Denies any LOC either. Patient denies any alleviating or aggravating factors at this present point. Although she does state that any movement makes the pain worse. Rates the pain as 7 out of 10, sharp, in nature similar to a muscle cramp. No known drug allergy Past medical history significant for hypercholesterolemia only PFSH Past Medical History Heart Rhythm Problems: No Cardiac Catheterization: No Cardiovascular Problems: Yes High Cholesterol: Yes Congestive Heart Failure: No Diabetes: No Diminished Hearing: No Influenza Vaccination: No ?: Not Menopausal: Yes Past Surgical History Coronary Artery Bypass Graft: No Family History Family Myocardial Infarction: Yes (Grandmother) Social History Alcohol Use: Yes Tobacco Use: No Substance Use: No Allergies-Medications (Allergen,Severity, Reaction): Coded Allergies: No Known Allergies (Unverified , 11/02/17) Reported Meds & Prescriptions Reported Meds & Active Scripts Active Reported Tramadol (Tramadol HCl) 50 Mg Tab 50 Mg PO Q4H PRN Simvastatin 20 Mg Tab 20 Mg PO BID Review of Systems General / Constitutional: No: Fever Eyes: No: Visual changes HENT: No: Headaches Cardiovascular: No: Chest Pain or Discomfort Respiratory: No: Shortness of Breath Gastrointestinal: No: Abdominal Pain Genitourinary: No: Dysuria Musculoskeletal: Positive: Myalgias, Pain Skin: No Rash Neurologic: No: Weakness Psychiatric: No: Depression Endocrine: No: Polydipsia Hematologic/Lymphatic: No: Easy Bruising Physical Exam Narrative GENERAL: SKIN: Warm and dry. HEAD: Atraumatic. Normocephalic. EYES: Pupils equal and round. No scleral icterus. No injection or drainage. ENT: No nasal bleeding or discharge. Mucous membranes pink and moist. NECK: Trachea midline. No JVD. CARDIOVASCULAR: Regular rate and rhythm. RESPIRATORY: No accessory muscle use. Clear to auscultation. Breath sounds equal bilaterally. GASTROINTESTINAL: Abdomen soft, non-tender, nondistended. MUSCULOSKELETAL: Extremities without clubbing, cyanosis, or edema. No obvious deformities. Also no palpable crepitus, deformities, step-offs throughout entire skeletal survey. Patient does have right lateral malleolus edema but without step-off or crepitus consistent with sprain. Left elbow has a mild contusion noted along the proximal forearm but without any crepitus or step- offs. Patient also has full range of motion shoulders elbow and wrist bilaterally. Patient also has normal range of motion to bilateral hips bilateral knees bilateral ankles NEUROLOGICAL: Awake and alert. No obvious cranial nerve deficits. Motor grossly within normal limits. Five out of 5 muscle strength in the arms and legs. Normal speech. PSYCHIATRIC: Appropriate mood and affect; insight and judgment normal. Data Data Last Documented VS Vital Signs Date Time Temp Pulse Resp B/P (MAP) Pulse Ox O2 Delivery O2 Flow Rate FiO2 11/02/17 19:27 98.1 87 18 139/82 (101) 99 Room Air Orders Orders Forearm (2vws) (11/02/17 ) Ketorolac Inj (Toradol Inj) (11/02/17 22:00) Orphenadrine Inj (Norflex Inj) (11/02/17 22:00) MDM Medical Decision Making Medical Screen Exam Complete: Yes Emergency Medical Condition: Yes Medical Record Reviewed: Yes Differential Diagnosis Contusion versus fracture versus dislocation Narrative Course X-rays were negative for any dislocations or fractures. Clinically the patient was found to have multiple contusions from the fall. But no evidence of any lacerations, or any deformities to be of concern for any fractures or dislocations. Diagnosis Primary Impression: Muscle strain Additional Impression: Contusion Patient Instructions: Contusion in Adults (ED), General Instructions, Muscle Strain (DC) Scripts Tramadol (Ultram) 50 Mg Tab 50 MG PO Q8H Y for PAIN, #15 TAB 0 Refills Prov: Regino Allen MD 11/02/17 Baclofen (Baclofen) 20 Mg Tab 20 MG PO TID for Muscle Spasm, #21 TAB 0 Refills Prov: Regino Allen MD 11/02/17 Disposition: 01 DISCHARGE HOME Condition: Stable Regino Allen MD Nov 02, 2017 22:08
== END 2017-11-03 00:11 | disposition home or self-care (01) ==
LOC: NEPD 18:57
DX: S50.12XA Contusion of left forearm, initial encounter (principal); T14.8XXA Other injury of unspecified body region, initial encounter; V00.891A Fall from other pedestrian conveyance, initial encounter; E78.00 Pure hypercholesterolemia, unspecified
CPT/HCPCS: 73090; 96372; 99283; J1885; J2360

== ENCOUNTER 2018-01-23 11:46 | Emergency (ER) | payer MEDICAID ==
[~2018-01-23] VITALS: Ht 167.6 cm; Wt 120.0 kg
[~2018-01-23 11:46] MED LIST changes: +BACL20TA PO; +TRAM50 PO
[2018-01-23 12:06] VITALS: BP 144/92; PULSE 80; RESP 18; TEMP 98.1; O2SAT 100
[2018-01-23] MEDS ORDERED: [UNRECOGNIZED DRUG - REMARK] PO (12:16)
[2018-01-23] MEDS ORDERED: CYCL5TAB PO (12:16)
[2018-01-23] MEDS ORDERED: IBUP1TAB7 PO ×2 (12:16→13:45)
[2018-01-23] MEDS ORDERED: HYDR-3580 PO (12:16)
[2018-01-23] MEDS ORDERED: KETOROLAC TROMETHAMINE 60 MG/2 ML (IM) VIAL IM ONE (12:45)
--- NOTE | 2018-01-23 13:32 | RADRPT ---
EXAM DATE: 01/23/2018 1:28 PM EDT AGE/SEX: 52 years / Female INDICATIONS: Right shoulder pain after roof caving in on patient today. CLINICAL DATA: This is the patient's initial encounter. Patient reports that signs and symptoms have been present for 1 day and indicates a pain score of 10/10. MEDICAL/SURGICAL HISTORY: None. None. COMPARISON: No prior exams available for comparison. FINDINGS: Bony structures are intact and in normal alignment. Joints are intact without dislocation or signifi cant arthropathy. Osseous density is normal. Soft tissues are unremarkable. No radiopaque foreign bodies seen. CONCLUSION: No acute findings. Electronically signed by: Taj Curry MD 01/23/2018 1:31 PM EDT
--- NOTE | 2018-01-23 13:37 | RADRPT ---
EXAM DATE: 01/23/2018 1:29 PM EDT AGE/SEX: 52 years / Female INDICATIONS: Neck pain after roof falling on patient today. CLINICAL DATA: This is the patient's initial encounter. Patient reports that signs and symptoms have been present for 1 day and indicates a pain score of 10/10. MEDICAL/SURGICAL HISTORY: None. None. COMPARISON: No prior exams available for comparison. FINDINGS: There is moderate degenerative disc disease in the cervical spine. No fracture or spondylolisthesis. No prevertebral soft tissue swelling. CONCLUSION: Moderate degenerative disc disease. No acute findings. Electronically signed by: Taj Curry MD 01/23/2018 1:35 PM EDT
[2018-01-23] MEDS ORDERED: ROBA500T PO (13:45)
--- NOTE | 2018-01-23 13:45 | PD ---
HPI Chief Complaint: Pain: Acute or Chronic Time Seen by Provider: 12:32 Travel History International Travel<30 days: No Contact w/Intl Traveler<30days: No Traveled to known affect area: No History of Present Illness HPI 52-year-old female presents to the emergency department with complaint of right shoulder pain and neck pain after the plaster from her ceiling fell on her while she was sleeping in her bed. She said it hit her neck and her right shoulder, causing her pain. Denies anything hitting her head or loss of consciousness. Denies paresthesias, loss of sensation to the right upper extremity. Reports decreased range of motion of the shoulder secondary to pain. Denies chest pain, shortness of breath, abdominal pain, nausea, vomiting. Denies anticoagulant therapy. Rates pain 9/10. Worse with movement. Better at rest. Has taken Flexeril for symptom management. Primary CARE providers Dr. Chinchilla. History of hypercholesterolemia and asthma. No known allergies. Has no other medical complaints. No other modifying factors or associated signs and symptoms. PFSH Past Medical History Heart Rhythm Problems: No Cardiac Catheterization: No Cardiovascular Problems: Yes High Cholesterol: Yes Congestive Heart Failure: No Diabetes: No Diminished Hearing: No ?: Not Menopausal: Yes Past Surgical History Coronary Artery Bypass Graft: No Social History Alcohol Use: Yes Tobacco Use: No Substance Use: No Allergies-Medications (Allergen,Severity, Reaction): Coded Allergies: No Known Allergies (Unverified , 01/23/18) Reported Meds & Prescriptions Reported Meds & Active Scripts Active Robaxin (Methocarbamol) 500 Mg Tab 500 Mg PO QID PRN Ibuprofen 800 Mg Tab 800 Mg PO Q6HR PRN Reported [unk sleeping pill] 1 Tab PO HS PRN Flexeril (Cyclobenzaprine HCl) 5 Mg Tab 5 Mg PO TID PRN Hydrocodone-Acetaminophen 7.5 Mg-325 Mg Tab 1 Tab PO Q6H PRN Ibuprofen 800 Mg Tab 800 Mg PO Q8H PRN Review of Systems Except as stated in HPI: all other systems reviewed are Neg Physical Exam Narrative GENERAL: Well-nourished, well-developed patient, in no acute distress SKIN: Warm and dry. HEAD: Atraumatic. Normocephalic. EYES: Pupils equal and round. No scleral icterus. No injection or drainage. ENT: Mucosa pink and moist. Airway patent. NECK: Trachea midline. No lymphadenopathy. Midline tenderness on palpation of the cervical spine: Cervical collar placed. No obvious deformities. CARDIOVASCULAR: Regular rate and rhythm. No murmur appreciated. RESPIRATORY: No accessory muscle use. Clear to auscultation. Breath sounds equal bilaterally. GASTROINTESTINAL: Rounded. MUSCULOSKELETAL: No obvious deformities. No clubbing. No cyanosis. No edema. Normal gait. BACK: No point tenderness on palpation of spine. No obvious deformities. NEUROLOGICAL: Awake and alert. Oriented 3. No obvious cranial nerve deficits. Motor grossly within normal limits. Normal speech. Moves all extremities. 5/5 strength to all extremities. Sensory intact. PSYCHIATRIC: Appropriate mood and affect; insight and judgment normal. Data Data Last Documented VS Vital Signs Date Time Temp Pulse Resp B/P (MAP) Pulse Ox O2 Delivery O2 Flow Rate FiO2 01/23/18 12:06 98.1 80 18 144/92 (109) 100 Orders Orders Shoulder, Complete (>2vws) (01/23/18 12:40) Spine, Cervical Compl(Qqs6diu) (01/23/18 12:40) Apply Cervical Collar (01/23/18 12:40) Ketorolac Inj (Toradol Inj) (01/23/18 12:45) Ed Discharge Order (01/23/18 13:45) MDM Medical Decision Making Medical Screen Exam Complete: Yes Emergency Medical Condition: Yes Medical Record Reviewed: Yes Differential Diagnosis Contusion, fracture, strain, injury Narrative Course 52-year-old female with right shoulder injury, and neck pain after the plaster of her ceiling fell on her while she was sleeping. She showed me a picture of the plaster and it was multiple small, broken up pieces that had fallen onto her bed. I did not see anything that was major that fell from the ceiling that could have caused any traumatic injury. She denies being hit in the head or loss of consciousness. The patient's pain seems to be out of proportion on physical exam, compared to injury. She has midline tenderness on palpation of the cervical spine. Cervical collar applied. I will x-ray the right shoulder and neck to rule out any acute findings. Patient took a muscle relaxer prior to arrival. Toradol ordered. Right shoulder and cervical spine x-ray concluded: Shoulder X-Ray 01/23/18 1240 Signed Impressions: CONCLUSION: No acute findings. Cervical Spine X-Ray 01/23/18 1240 Signed Impressions: CONCLUSION: Moderate degenerative disc disease. No acute findings. Discussed x-ray findings with the patient. Cervical collar removed. Robaxin and ibuprofen prescribed for home. Instructed patient to follow up with primary care provider. Patient verbalizes understanding and agreement with treatment plan. Patient is medically cleared and stable for discharge. Discussed reasons to return to the emergency department. Patient agrees with treatment plan. The patients vital signs are stable and the patient is stable for outpatient follow-up and treatment. Patient discharged home, stable and in no acute distress. Diagnosis Primary Impression: Right shoulder injury Qualified Codes: S49.91XA - Unspecified injury of right shoulder and upper arm , initial encounter Additional Impression: Neck pain Referrals: Primary Care Physician Patient Instructions: Cervical Strain (ED), Contusion in Adults (ED), General Instructions, Neck Pain (ED), Shoulder Sprain (ED) Additional Instructions: Tylenol or ibuprofen as directed and as needed for pain Robaxin as prescribed and as needed for muscle spasms Heating pad and/or ice to affected area to reduce pain Avoid aggravating activities; increase activity as tolerated Follow-up with primary care provider Return to emergency department immediately with worsening of symptoms Med/Other Pt SpecificInfo: Prescription(s) given Scripts Methocarbamol (Robaxin) 500 Mg Tab 500 MG PO QID Y for MUSCLE SPASM, #30 TAB 0 Refills Prov: Kacy Dover 01/23/18 Ibuprofen (Ibuprofen) 800 Mg Tab 800 MG PO Q6HR Y for PAIN, #30 TAB 0 Refills Prov: Kacy Dover 01/23/18 Disposition: 01 DISCHARGE HOME Condition: Stable Kacy Dover Jan 23, 2018 13:45
== END 2018-01-23 14:10 | disposition home or self-care (01) ==
LOC: NEPK 11:46
DX: S49.91XA Unspecified injury of right shoulder and upper arm, initial encounter (principal); M54.2 Cervicalgia; W20.8XXA Other cause of strike by thrown, projected or falling object, initial encounter; Y93.84 Activity, sleeping; Y92.003 Bedroom of unspecified non-institutional (private) residence as the place of occurrence of the external cause; E78.00 Pure hypercholesterolemia, unspecified; Z87.09 Personal history of other diseases of the respiratory system; Z86.79 Personal history of other diseases of the circulatory system
CPT/HCPCS: 72050; 73030; 96372; 99284; J1885